=== PATIENT | female | born 1970 | race Caucasian/White ===

== ENCOUNTER → 2020-10-31 13:30 | Outpatient (BNVA) | payer MEDICARE, SELFPAY | PROVIDERS: PCP Internal Medicine; Visit Provider Student in an Organized Health Care Education/Training Program | DX: Z13.89 Encounter for screening for other disorder (principal) | CPT/HCPCS: Q3014 ==

== ENCOUNTER 2020-12-08 16:40 | Outpatient (REF) | payer MEDICARE, SELFPAY ==
[2020-12-08 18:03] LABS: MANUAL DIFF FLAG NO
[2020-12-08 18:04] LABS: Basophils Percent Auto 0.3 % (0-2); Eosinophils Absolute Auto 0.3 X10*3/uL (0.0-0.4); Eosinophils Percent Auto 3.9 % (0-4); Hematocrit 40.5 % (37-47); Hemoglobin 13.1 g/dl (12.0-16.0); Imm Gran Abs Auto 0.02 X10*3/uL (0.00-0.03); Imm Gran Pct Auto 0.3 % (0.0-0.4); Lymphocytes Absolute Auto 1.9 X10*3/uL (1.2-4.9); Mean Corpuscular HGB Conc 32.3 g/dl (31.0-35.0); Mean Corpuscular Hemoglobin 28.5 pg (27.0-33.0); Mean Corpuscular Volume 88.2 fL (80-98); Monocytes Absolute Auto 0.7 X10*3/uL (0.1-1.2); Monocytes Percent Auto 8.7 % (2-11); Neutrophils Absolute Auto 4.7 X10*3/uL (2.0-8.3); Neutrophils Percent Auto 61.8 % (45-73); Platelet Count 318 X10*3/uL (160-400); Red Blood Count 4.59 X10*6/uL (4.20-5.50); Red Cell Distribution Width 13.7 % (11.0-16.0); White Blood Count 7.6 X10*3/uL (4.8-10.8)
[2020-12-08 18:35] LABS: Alanine Aminotransferase 29 U/L (0-31); Albumin Level 4.2 g/dL (3.5-5.0); Alkaline Phosphatase 83 U/L (39-117); Anion Gap 12 (12-20); Aspartate Amino Transferase 20 U/L (5-31); Bilirubin Total 0.8 mg/dL (0.0-1.0); Blood Urea Nitrogen 16 mg/dL (9-16); C Reactive Protein 0.44 mg/dL (< or = 0.50); Calcium 8.8 mg/dL (8.4-10.2); Carbon Dioxide 33 mmol/L (22-29); Chloride 102 mmol/L (96-108); Estimated Glomerular Filt Rate > 60; Glucose Random 88 mg/dL (60-115); Potassium 3.9 mmol/L (3.3-5.1); Sodium 143 mmol/L (135-145); Total Protein 7.2 g/dL (6.5-8.0)
[2020-12-08 19:04] LABS: Erythrocyte Sedimentation Rate 21 MM/HR (0-20)
== END 2020-12-08 16:41 | disposition home or self-care (01) ==
LOC: HO.LAB 16:40
PROVIDERS: Visit Provider Student in an Organized Health Care Education/Training Program
DX: M05.9 Rheumatoid arthritis with rheumatoid factor, unspecified (principal)
CPT/HCPCS: 36415; 80053; 85025; 85652; 86140

== ENCOUNTER → 2021-01-16 16:05 | Outpatient (BNVA) | payer MEDICARE, SELFPAY | PROVIDERS: PCP Internal Medicine; Visit Provider Student in an Organized Health Care Education/Training Program | DX: M05.9 Rheumatoid arthritis with rheumatoid factor, unspecified (principal); Z79.899 Other long term (current) drug therapy | CPT/HCPCS: 99212 ==

== ENCOUNTER 2021-04-18 16:12 | Outpatient (REF) | payer MEDICARE, SELFPAY ==
--- NOTE | ~2021-04-18 | XR_ITS ---
EXAMINATION: XR KNEE, LEFT CLINICAL INFORMATION: Rheumatoid arthritis with rheumatoid factor. Left knee pain. COMPARISON: None TECHNIQUE: 3 views of the left knee. FINDINGS: There is loss of medial and patellofemoral compartment joint space with periarticular spurring. No visible acute fracture, dislocation or subluxation seen. There is a moderate size enthesophyte along the anterosuperior patella and anterior tibial tubercle. No joint effusion seen. No soft tissue swelling. XR/XR knee LT 3V IMPRESSION: Mild degenerative changes medial and patellofemoral compartment. With moderate enthesophytes along the superior patella and anterior tibial tubercle. No acute fracture or dislocation seen.
[2021-04-18 17:10] LABS: MANUAL DIFF FLAG NO
[2021-04-18 17:25] LABS: Basophils Percent Auto 0.2 % (0-2); Eosinophils Absolute Auto 0.2 X10*3/uL (0.0-0.4); Eosinophils Percent Auto 1.9 % (0-4); Hematocrit 39.4 % (37-47); Hemoglobin 12.8 g/dl (12.0-16.0); Imm Gran Abs Auto 0.02 X10*3/uL (0.00-0.03); Imm Gran Pct Auto 0.2 % (0.0-0.4); Lymphocytes Absolute Auto 1.7 X10*3/uL (1.2-4.9); Lymphocytes Percent Auto 19.5 % (20-40); Mean Corpuscular HGB Conc 32.5 g/dl (31.0-35.0); Mean Corpuscular Hemoglobin 27.9 pg (27.0-33.0); Mean Corpuscular Volume 85.8 fL (80-98); Mean Platelet Volume 10.9 fL (9.4-12.3); Monocytes Absolute Auto 0.5 X10*3/uL (0.1-1.2); Monocytes Percent Auto 6.3 % (2-11); Neutrophils Absolute Auto 6.2 X10*3/uL (2.0-8.3); Neutrophils Percent Auto 71.9 % (45-73); Platelet Count 270 X10*3/uL (160-400); Red Blood Count 4.59 X10*6/uL (4.20-5.50); Red Cell Distribution Width 14.3 % (11.0-16.0); White Blood Count 8.6 X10*3/uL (4.8-10.8)
[2021-04-18 18:16] LABS: Alanine Aminotransferase 31 U/L (0-31); Albumin Level 4.4 g/dL (3.5-5.0); Alkaline Phosphatase 72 U/L (39-117); Aspartate Amino Transferase 22 U/L (5-31); Bilirubin Total 0.5 mg/dL (0.0-1.0); Blood Urea Nitrogen 14 mg/dL (9-16); C Reactive Protein 0.62 mg/dL (< or = 0.50); Calcium 9.7 mg/dL (8.4-10.2); Estimated Glomerular Filt Rate > 60; Glucose Random 110 mg/dL (60-115); Total Protein 7.4 g/dL (6.5-8.0)
[2021-04-18 18:21] LABS: Anion Gap 10 (12-20); Carbon Dioxide 31 mmol/L (22-29); Chloride 104 mmol/L (96-108); Potassium 4.4 mmol/L (3.3-5.1); Sodium 141 mmol/L (135-145)
[2021-04-18 18:36] LABS: Erythrocyte Sedimentation Rate 25 MM/HR (0-20)
== END 2021-04-18 16:13 | disposition home or self-care (01) ==
LOC: HO.XRAY 16:12
PROVIDERS: PCP Internal Medicine; Visit Provider Student in an Organized Health Care Education/Training Program
DX: M05.9 Rheumatoid arthritis with rheumatoid factor, unspecified (principal); Z79.899 Other long term (current) drug therapy
CPT/HCPCS: 36415; 73562; 80053; 85025; 85652; 86140; 99212

== ENCOUNTER 2021-08-01 14:17 | Outpatient (REF) | payer MEDICARE, SELFPAY ==
--- NOTE | ~2021-08-01 | XR_ITS ---
EXAMINATION: XR FOOT, LEFT CLINICAL INFORMATION: Pain left foot COMPARISON: None TECHNIQUE: AP, lateral, and oblique views of the left foot. FINDINGS: There is a large calcaneal heel and retrocalcaneal enthesophytes. Also mild dorsal intertarsal spurring is visualized. No acute fracture or dislocation seen. The ankle mortise and subtalar joints appear normal. The soft tissues are normal. XR/XR foot LT 2V IMPRESSION: Large calcaneal heel and retrocalcaneal enthesophytes.
[2021-08-01 15:51] LABS: MANUAL DIFF FLAG NO
[2021-08-01 15:56] LABS: Basophils Percent Auto 0.3 % (0-2); Eosinophils Absolute Auto 0.2 X10*3/uL (0.0-0.4); Eosinophils Percent Auto 2.6 % (0-4); Hematocrit 40.1 % (37-47); Hemoglobin 12.8 g/dl (12.0-16.0); Imm Gran Abs Auto 0.02 X10*3/uL (0.00-0.03); Imm Gran Pct Auto 0.3 % (0.0-0.4); Lymphocytes Absolute Auto 1.5 X10*3/uL (1.2-4.9); Lymphocytes Percent Auto 19.7 % (20-40); Mean Corpuscular HGB Conc 31.9 g/dl (31.0-35.0); Mean Corpuscular Hemoglobin 27.8 pg (27.0-33.0); Mean Platelet Volume 9.9 fL (9.4-12.3); Monocytes Absolute Auto 0.7 X10*3/uL (0.1-1.2); Monocytes Percent Auto 9.3 % (2-11); Neutrophils Percent Auto 67.8 % (45-73); Platelet Count 305 X10*3/uL (160-400); Red Blood Count 4.61 X10*6/uL (4.20-5.50); Red Cell Distribution Width 14.3 % (11.0-16.0); White Blood Count 7.4 X10*3/uL (4.8-10.8)
[2021-08-01 16:17] LABS: Alanine Aminotransferase 33 U/L (0-31); Albumin Level 4.2 g/dL (3.5-5.0); Alkaline Phosphatase 74 U/L (39-117); Anion Gap 11 (12-20); Aspartate Amino Transferase 21 U/L (5-31); Bilirubin Total 0.6 mg/dL (0.0-1.0); Blood Urea Nitrogen 10 mg/dL (9-16); C Reactive Protein 0.72 mg/dL (< or = 0.50); Calcium 9.7 mg/dL (8.4-10.2); Carbon Dioxide 31 mmol/L (22-29); Chloride 102 mmol/L (96-108); Estimated Glomerular Filt Rate > 60; Glucose Random 101 mg/dL (60-115); Potassium 3.6 mmol/L (3.3-5.1); Sodium 140 mmol/L (135-145); Total Protein 7.2 g/dL (6.5-8.0)
[2021-08-01 18:09] LABS: Erythrocyte Sedimentation Rate 21 MM/HR (0-20)
== END 2021-08-01 14:18 | disposition home or self-care (01) ==
LOC: HO.LAB 14:17
PROVIDERS: PCP Internal Medicine; Visit Provider Nurse Practitioner Family
DX: M05.9 Rheumatoid arthritis with rheumatoid factor, unspecified (principal); M79.672 Pain in left foot; Z79.899 Other long term (current) drug therapy
CPT/HCPCS: 36415; 73620; 80053; 85025; 85652; 86140; 99212

== ENCOUNTER 2021-10-12 11:48 | Outpatient (REF) | payer MEDICARE, OTHER, SELFPAY ==
[2021-10-12 12:04] LABS: MANUAL DIFF FLAG NO
[2021-10-12 12:49] LABS: Basophils Percent Auto 0.3 % (0-2); Eosinophils Absolute Auto 0.2 X10*3/uL (0.0-0.4); Eosinophils Percent Auto 3.1 % (0-4); Hematocrit 39.6 % (37.0-47.0); Hemoglobin 12.7 g/dl (12.0-16.0); Imm Gran Abs Auto 0.04 X10*3/uL (0.00-0.03); Imm Gran Pct Auto 0.5 % (0.0-0.4); Lymphocytes Absolute Auto 1.8 X10*3/uL (1.2-4.9); Mean Corpuscular HGB Conc 32.1 g/dl (31.0-35.0); Mean Corpuscular Hemoglobin 27.7 pg (27.0-33.0); Mean Corpuscular Volume 86.3 fL (80.0-98.0); Mean Platelet Volume 9.9 fL (9.4-12.3); Monocytes Absolute Auto 0.5 X10*3/uL (0.1-1.2); Neutrophils Percent Auto 65.1 % (45-73); Platelet Count 318 X10*3/uL (160-400); Red Blood Count 4.59 X10*6/uL (4.20-5.50); Red Cell Distribution Width 13.5 % (11.0-16.0); White Blood Count 7.6 X10*3/uL (4.8-10.8)
[2021-10-12 13:31] LABS: Alanine Aminotransferase 32 U/L (0-31); Albumin Level 4.1 g/dL (3.5-5.0); Alkaline Phosphatase 69 U/L (39-117); Anion Gap 13 (12-20); Aspartate Amino Transferase 22 U/L (5-31); Bilirubin Total 0.8 mg/dL (0.0-1.0); Blood Urea Nitrogen 14 mg/dL (9-16); C Reactive Protein 0.71 mg/dL (< or = 0.50); Calcium 9.6 mg/dL (8.4-10.2); Carbon Dioxide 28 mmol/L (22-29); Chloride 105 mmol/L (96-108); Estimated Glomerular Filt Rate > 60; Glucose Random 98 mg/dL (60-115); Potassium 4.4 mmol/L (3.3-5.1); Sodium 142 mmol/L (135-145); Total Protein 7.3 g/dL (6.5-8.0)
[2021-10-12 13:41] LABS: Erythrocyte Sedimentation Rate 25 MM/HR (0-20)
== END 2021-10-12 11:49 | disposition home or self-care (01) ==
LOC: HO.LAB 11:48
PROVIDERS: Visit Provider Nurse Practitioner Family
DX: M05.9 Rheumatoid arthritis with rheumatoid factor, unspecified (principal)
CPT/HCPCS: 36415; 80053; 85025; 85652; 86140

== ENCOUNTER → 2021-11-27 09:35 | Outpatient (BNVA) | payer MEDICARE, OTHER, SELFPAY | PROVIDERS: PCP Internal Medicine; Visit Provider Nurse Practitioner Family | DX: M05.9 Rheumatoid arthritis with rheumatoid factor, unspecified (principal); M79.672 Pain in left foot; Z79.899 Other long term (current) drug therapy | CPT/HCPCS: 99212 ==

== ENCOUNTER 2022-02-15 10:12 | Outpatient (REF) | payer MEDICARE, OTHER, SELFPAY ==
[2022-02-15 10:27] LABS: MANUAL DIFF FLAG NO
[2022-02-15 11:32] LABS: Basophils Percent Auto 0.4 % (0-2); Eosinophils Absolute Auto 0.2 X10*3/uL (0.0-0.4); Eosinophils Percent Auto 3.3 % (0-4); Hematocrit 40.5 % (37.0-47.0); Imm Gran Abs Auto 0.01 X10*3/uL (0.00-0.03); Imm Gran Pct Auto 0.2 % (0.0-0.4); Lymphocytes Absolute Auto 1.4 X10*3/uL (1.2-4.9); Lymphocytes Percent Auto 27.3 % (20-40); Mean Corpuscular HGB Conc 32.1 g/dl (31.0-35.0); Mean Corpuscular Hemoglobin 28.1 pg (27.0-33.0); Mean Corpuscular Volume 87.7 fL (80.0-98.0); Mean Platelet Volume 9.7 fL (9.4-12.3); Monocytes Absolute Auto 0.4 X10*3/uL (0.1-1.2); Monocytes Percent Auto 6.8 % (2-11); Neutrophils Absolute Auto 3.2 x10*3/uL (2.0-8.3); Platelet Count 325 X10*3/uL (160-400); Red Blood Count 4.62 X10*6/uL (4.20-5.50); Red Cell Distribution Width 14.4 % (11.0-16.0); White Blood Count 5.2 X10*3/uL (4.8-10.8)
[2022-02-15 12:08] LABS: Erythrocyte Sedimentation Rate 23 MM/HR (0-20)
[2022-02-15 12:26] LABS: Alanine Aminotransferase 42 U/L (0-31); Albumin Level 4.1 g/dL (3.5-5.0); Alkaline Phosphatase 84 U/L (39-117); Anion Gap 10 (12-20); Aspartate Amino Transferase 26 U/L (5-31); Bilirubin Total 0.7 mg/dL (0.0-1.0); Blood Urea Nitrogen 8 mg/dL (9-16); C Reactive Protein 0.71 mg/dL (< or = 0.50); Calcium 9.6 mg/dL (8.4-10.2); Carbon Dioxide 32 mmol/L (22-29); Chloride 103 mmol/L (96-108); Estimated Glomerular Filt Rate > 60; Glucose Random 84 mg/dL (60-115); Potassium 4.1 mmol/L (3.3-5.1); Sodium 141 mmol/L (135-145); Total Protein 7.1 g/dL (6.5-8.0)
== END 2022-02-15 10:13 | disposition home or self-care (01) ==
LOC: HO.LAB 10:12
PROVIDERS: Visit Provider Nurse Practitioner Family
DX: M05.9 Rheumatoid arthritis with rheumatoid factor, unspecified (principal); Z79.899 Other long term (current) drug therapy
CPT/HCPCS: 36415; 80053; 85025; 85652; 86140

== ENCOUNTER → 2022-02-22 08:54 | Outpatient (BNVA) | payer MEDICARE, OTHER, SELFPAY | PROVIDERS: PCP Internal Medicine; Visit Provider Nurse Practitioner Family | DX: M05.9 Rheumatoid arthritis with rheumatoid factor, unspecified (principal); M79.672 Pain in left foot; Z79.899 Other long term (current) drug therapy | CPT/HCPCS: 99212 ==

== ENCOUNTER 2022-07-22 14:01 | Outpatient (REF) | payer MEDICARE, OTHER, SELFPAY ==
[2022-07-22 14:16] LABS: MANUAL DIFF FLAG NO
[2022-07-22 14:38] LABS: Basophils Percent Auto 0.3 % (0-2); Eosinophils Absolute Auto 0.2 X10*3/uL (0.0-0.4); Eosinophils Percent Auto 2.6 % (0-4); Hematocrit 39.6 % (37.0-47.0); Imm Gran Abs Auto 0.02 X10*3/uL (0.00-0.03); Imm Gran Pct Auto 0.3 % (0.0-0.4); Lymphocytes Absolute Auto 1.5 X10*3/uL (1.2-4.9); Lymphocytes Percent Auto 20.5 % (20-40); Mean Corpuscular HGB Conc 32.8 g/dl (31.0-35.0); Mean Corpuscular Hemoglobin 27.8 pg (27.0-33.0); Mean Corpuscular Volume 84.6 fL (80.0-98.0); Mean Platelet Volume 9.8 fL (9.4-12.3); Monocytes Absolute Auto 0.6 X10*3/uL (0.1-1.2); Monocytes Percent Auto 7.9 % (2-11); Neutrophils Absolute Auto 4.9 x10*3/uL (2.0-8.3); Neutrophils Percent Auto 68.4 % (45-73); Platelet Count 309 X10*3/uL (160-400); Red Blood Count 4.68 X10*6/uL (4.20-5.50); Red Cell Distribution Width 13.6 % (11.0-16.0); White Blood Count 7.2 X10*3/uL (4.8-10.8)
[2022-07-22 15:02] LABS: Alanine Aminotransferase 27 U/L (0-31); Aspartate Amino Transferase 20 U/L (5-31); C Reactive Protein 1.03 mg/dL (< or = 0.50); Estimated Glomerular Filt Rate > 60
[2022-07-22 15:18] LABS: Erythrocyte Sedimentation Rate 25 MM/HR (0-20)
== END 2022-07-22 14:02 | disposition home or self-care (01) ==
LOC: HO.LAB 14:01
PROVIDERS: Visit Provider Nurse Practitioner Family
DX: M05.9 Rheumatoid arthritis with rheumatoid factor, unspecified (principal); Z79.899 Other long term (current) drug therapy
CPT/HCPCS: 36415; 82565; 84450; 84460; 85025; 85652; 86140

== ENCOUNTER 2022-08-22 13:05 | Outpatient (REF) | payer MEDICARE, SELFPAY ==
[2022-08-22 13:16] LABS: MANUAL DIFF FLAG NO
[2022-08-22 13:25] LABS: Basophils Percent Auto 0.1 % (0-2); Eosinophils Absolute Auto 0.2 X10*3/uL (0.0-0.4); Eosinophils Percent Auto 2.8 % (0-4); Hematocrit 41.7 % (37.0-47.0); Imm Gran Abs Auto 0.02 X10*3/uL (0.00-0.03); Imm Gran Pct Auto 0.3 % (0.0-0.4); Lymphocytes Absolute Auto 1.9 X10*3/uL (1.2-4.9); Lymphocytes Percent Auto 23.8 % (20-40); Mean Corpuscular HGB Conc 33.6 g/dl (31.0-35.0); Mean Corpuscular Hemoglobin 28.3 pg (27.0-33.0); Mean Corpuscular Volume 84.4 fL (80.0-98.0); Mean Platelet Volume 9.5 fL (9.4-12.3); Monocytes Absolute Auto 0.5 X10*3/uL (0.1-1.2); Monocytes Percent Auto 6.2 % (2-11); Neutrophils Absolute Auto 5.3 x10*3/uL (2.0-8.3); Neutrophils Percent Auto 66.8 % (45-73); Platelet Count 341 X10*3/uL (160-400); Red Blood Count 4.94 X10*6/uL (4.20-5.50); Red Cell Distribution Width 13.7 % (11.0-16.0); White Blood Count 7.9 X10*3/uL (4.8-10.8)
[2022-08-22 14:03] LABS: Alanine Aminotransferase 29 U/L (0-31); Aspartate Amino Transferase 21 U/L (5-31); C Reactive Protein 0.91 mg/dL (< or = 0.50); Estimated Glomerular Filt Rate > 60
[2022-08-22 14:09] LABS: Erythrocyte Sedimentation Rate 31 MM/HR (0-20)
== END 2022-08-22 13:06 | disposition home or self-care (01) ==
LOC: HO.LAB 13:05
PROVIDERS: Visit Provider Nurse Practitioner Family
DX: M05.9 Rheumatoid arthritis with rheumatoid factor, unspecified (principal); Z79.899 Other long term (current) drug therapy
CPT/HCPCS: 36415; 82565; 84450; 84460; 85025; 85652; 86140

== ENCOUNTER 2022-08-23 15:09 | Outpatient (REF) | payer MEDICARE, SELFPAY ==
--- NOTE | ~2022-08-23 | US_ITS ---
EXAMINATION: US VENOUS ULTRASOUND WITH DOPPLER LOWER EXTREMITY, RIGHT CLINICAL INFORMATION: Right leg swelling. COMPARISON: None TECHNIQUE: Ultrasound of the deep veins is performed from the hip to the calf with compression sonography and color and pulse Doppler assessment. Spectral analysis with color-flow imaging is performed. FINDINGS: The right common femoral, superficial femoral, profunda, popliteal and peroneal veins are patent. There is decreased compression and flow in the visualized right posterior tibial veins questionable for thrombus. Short-term follow-up exam in 5-7 days is recommended. There is no Morocho's cyst. US/US venous duplex LE RT IMPRESSION: Question DVT in the right posterior tibial veins. Short-term follow-up exam recommended. Findings were communicated by the geospatial technologist at the completion of the exam.
--- NOTE | ~2022-08-23 | XR_ITS ---
EXAMINATION: XR HAND, LEFT CLINICAL INFORMATION: Rheumatoid arthritis. COMPARISON: None. TECHNIQUE: PA, lateral, and oblique views of the left hand. FINDINGS: Bone alignment is normal. No acute fracture or dislocation is seen. There is proliferative arthritis at the IP joints, 1st PENITENTIARY joint and 1st MCP joint with joint space narrowing and osteophyte formation. There is arthritis at the radiocarpal joint with joint space narrowing and osteophyte formation. No erosions. Normal soft tissues. XR/XR hand LT min 3V IMPRESSION: Arthritis at the IP joints, 1st MCP and PENITENTIARY joints and radiocarpal joint.
--- NOTE | ~2022-08-23 | XR_ITS ---
EXAMINATION: XR HAND, RIGHT CLINICAL INFORMATION: Rheumatoid arthritis COMPARISON: None TECHNIQUE: PA, lateral, and oblique views of the right hand. FINDINGS: Bone alignment is normal. No fracture or dislocation. There is evidence of mild osteoarthritis with joint space narrowing and osteophyte formation at the IP joints and 1st PRISON joint. Joint spaces are otherwise normal. No erosions. Normal soft tissues. 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
== END 2022-08-23 15:10 | disposition home or self-care (01) ==
LOC: HO.US 15:09
PROVIDERS: Visit Provider Nurse Practitioner Family
DX: Z13.89 Encounter for screening for other disorder (principal)
CPT/HCPCS: 73130; 93971; 99212

== ENCOUNTER 2022-08-23 18:41 | Emergency (ER) | payer MEDICARE, SELFPAY ==
[2022-08-23 19:07] VITALS: BP 150/85; PULSE 82; RESP 20; TEMP 36.8; O2SAT 96; BMI 34.0
--- NOTE | 2022-08-23 19:12 | PC.NURSE ---
Pt. with known blood clot in her right leg confirmed today by her Race Relations Professor. Pt. reports intermittent SOB. bellows tester aware
--- NOTE | 2022-08-23 19:57 | ED.GENADULT ---
HPI - General Adult General Chief complaint: General Medical Stated complaint: blood clot found in L leg Time Seen by Provider: 08/23/22 19:30 Source: patient Mode of arrival: ambulatory Limitations: no limitations History of Present Illness HPI narrative: 51-year-old female past medical history significant for RA, hearing impairment, on MTX ( 10 tabs weekly) presents to the emergency department with concerns that she may have a blood clot. Patient tells me that she was seen by her home health clinical supervisor today who noted that her right leg was slightly larger than her left leg, they proceeded to do an ultrasound and they told her that she may have a blood clot to her right lower extremity. Patient tells me that she started experiencing intermittent tingling to the right lower extremity and some soreness. She tells me that this all started today. Patient is not a smoker, not on blood thinners, no history of DVT or PE, no history of hypercoagulable disorders. Patient denies chest pain, shortness of breath, nausea, vomiting, fevers, chills, weakness, dizziness, headache. Patient tells me that she had an outpatient ultrasound done results pending. To note patient speaks ASL however refusing cushion sewer would like family to interpret. Related Data Home Medications Medication Instructions Recorded Confirmed albuterol sulfate 90 mcg/actuation 2 puff inhalation Q6H PRN 10/31/20 aerosol inhaler Previous Rx's Medication Instructions Recorded folic acid 1 mg tablet 1 mg PO DAILY #90 tabs 06/11/22 naproxen 500 mg tablet 500 mg PO BID PRN pain #60 tabs 08/06/22 methotrexate sodium 2.5 mg tablet 25 mg PO QWEEK #40 tabs 08/20/22 apixaban 5 mg (74 tabs) tablets in 5 mg PO BID #74 ea 08/23/22 a dose pack (Eliquis DVT-PE Treat 30D Start) cyclobenzaprine 10 mg tablet 10 mg PO BEDTIME #30 tabs 08/23/22 Allergies Allergy/AdvReac Type Severity Reaction Status Date / Time No Known Allergies Allergy Verified 08/23/22 19:14 Review of Systems Review of Systems: Constitutional : No Weight loss, No Fever, No Chills, No Fatigue, No Malaise ENT/Mouth : No sore throat, No Rhinorrhea Eyes: No Eye Pain, No Swelling, No Redness Cardiovascular : No Chest Pain, No SOB, No Dyspnea on Exertion, No Orthopnea, + Edema, No Palpitations Respiratory : No Cough, No Sputum, No Wheezing Gastrointestinal : No Nausea, No Vomiting, No Diarrhea, No Constipation, No abdominal Pain, No Hematochezia, No Melena Genitourinary : No Dysuria, No Urinary Frequency, No Hematuria, Musculoskeletal : No joint pain, No Myalgias, No Joint Swelling, Skin : No Skin Lesions, No rash Neuro : No Weakness, No Numbness, No Dizziness, No Headache Psych : No Anxiety/Panic, No Depression All other systems reviewed and are negative Yes all other systems are reviewed and are negative [facility] Past Medical History Attestation statement: The following information was validated with the patient. Source: old records reviewed and nursing notes reviewed Medical History Seropositive rheumatoid arthritis Social History Social History Alcohol intake: never Patient Tobacco Use Status: Never used Tobacco e-Cigarette/Vaping Use: Never Used Advance Directives: No Advance Directives Information Provided: No Physical Exam ED Vital Signs: Vital Signs - 24 hr 08/23/22 19:07 Temperature 98.2 F Pulse Rate 82 Respiratory Rate 20 Blood Pressure 150/85 H Pulse Oximetry 96 Oxygen Delivery Method Room Air BMI result Body Mass Index 34.0 vss Appearance: Alert.? Oriented X3.? No acute distress.? Head: Normocephalic, atraumatic, no step-offs or deformities Eyes: Pupils equal, round and reactive to light.? CVS: Normal heart rate and rhythm.? Pulses normal.? Respiratory: No respiratory distress.? Breath sounds normal.? Abdomen: Soft and nontender.? Skin: Skin warm and dry.? Normal skin color.? Normal skin turgor.? Extremities: 1+ pitting edema from knee down to b/l lower extremities? No calf ttp, negative giana b/l. 5/5 strength to bilateral upper and lower extremities Neuro: Oriented X 3.? No motor deficit.? No sensory deficit. CN 2-12 intact Course Reevaluation(s) Reevaluation #1: CBC within normal limits. Chemistry with no acute electrolyte abnormalities requiring intervention. Coags within normal limits. COVID negative. I did discuss this case with my attendings and who both recommend starting patient on Eliquis for 7 days, they recommend that she has a repeat ultrasound of right lower extremity in 5-7 days. Advised to follow-up with PCP and home health clinical supervisor. I educated patient and family members on risk versus benefits of starting Eliquis, they verbalized understanding. At this time patient will be started on Eliquis advised to return with new or worsening symptoms. At this time I feel comfortable with discharge home Time: 22:21 Medical Decision Making MDM Narrative Medical decision making narrative: [id number] 51 year old female presents to the emergency department from her home health clinical supervisor's office was concerned she may have a DVT to the right lower extremity. They did an outpatient ultrasound today. She is unsure about results. Reports intermittent tingling to right lower extremity with some soreness. Physical examination with 1+ pitting edema to bilateral lower extremities from the knee down. 2+ dorsalis pedis, anterior tibialis and posterior tibialis pulses equal bilateral. Full range of motion bilaterally to lower extremities. Capillary refill intact. Negative Giana bilaterally. Upon chart review it appears as though patient had an ultrasound done today of the right lower extremity impression shows question DVT in the right posterior tibial veins. Short-term follow-up exam was recommended. Plan at this time is to obtain basic labs. Medical Records Medical records reviewed: Yes I reviewed the patient's medical records. Lab Data Lab results reviewed: Yes I reviewed the patient's lab results. Result diagrams: 08/23/22 22:10 08/23/22 21:00 Labs: Lab Results 08/23/22 08/23/22 08/23/22 Range/Units 21:00 21:00 21:03 WBC (4.8-10.8) X10*3/uL RBC (4.20-5.50) X10*6/uL Hgb (12.0-16.0) g/dl Hct (37.0-47.0) % MCV (80.0-98.0) fL MCH (27.0-33.0) pg MCHC (31.0-35.0) g/dl RDW (11.0-16.0) % Plt Count (160-400) X10*3/uL MPV (9.4-12.3) fL Immature Gran % (Auto) (0.0-0.4) % Neut % (Auto) (45-73) % Lymph % (Auto) (20-40) % Ness % (Auto) (2-11) % Eos % (Auto) (0-4) % Baso % (Auto) (0-2) % Lymph # (Auto) (1.2-4.9) X10*3/uL Ness # (Auto) (0.1-1.2) X10*3/uL Eos # (Auto) (0.0-0.4) X10*3/uL Baso # (Auto) (0.0-0.2) X10*3/uL Abs Immat Gran (auto) (0.00-0.03) X10*3/uL Absolute Neuts (auto) (2.0-8.3) x10*3/uL Absolute Nucleated RBC (0.0-0.012) X10*3/uL Nucleated RBC % (auto) (0.0-0.2) /100WBC PT 11.8 (10.0-13.1) SEC INR 1.0 (0.9-1.1) Sodium 142 (135-145) mmol/L Potassium 3.9 (3.3-5.1) mmol/L Chloride 101 (96-108) mmol/L Carbon Dioxide 31 H (22-29) mmol/L Anion Gap 14 (12-20) BUN 11 (9-16) mg/dL Creatinine 0.94 (0.5-1.4) mg/dL Estim Creat Clear Calc 75.1 Estimated GFR > 60 Random Glucose 115 (60-115) mg/dL Calcium 9.6 (8.4-10.2) mg/dL Magnesium 2.1 (1.6-2.6) mg/dL Total Bilirubin 0.9 (0.0-1.0) mg/dL AST 20 (5-31) U/L ALT 26 (0-31) U/L Alkaline Phosphatase 81 (39-117) U/L Total Protein 7.5 (6.5-8.0) g/dL Albumin 4.5 (3.5-5.0) g/dL COVID-19 ([facility]) Negative (Negative) COVID-19 Clin Com See Note 08/23/22 Range/Units 22:10 WBC 10.2 (4.8-10.8) X10*3/uL RBC 4.90 (4.20-5.50) X10*6/uL Hgb 13.7 (12.0-16.0) g/dl Hct 41.0 (37.0-47.0) % MCV 83.7 (80.0-98.0) fL MCH 28.0 (27.0-33.0) pg MCHC 33.4 (31.0-35.0) g/dl RDW 13.7 (11.0-16.0) % Plt Count 344 (160-400) X10*3/uL MPV 9.6 (9.4-12.3) fL Immature Gran % (Auto) 0.1 (0.0-0.4) % Neut % (Auto) 66.9 (45-73) % Lymph % (Auto) 23.0 (20-40) % Ness % (Auto) 7.7 (2-11) % Eos % (Auto) 2.0 (0-4) % Baso % (Auto) 0.3 (0-2) % Lymph # (Auto) 2.3 (1.2-4.9) X10*3/uL Ness # (Auto) 0.8 (0.1-1.2) X10*3/uL Eos # (Auto) 0.2 (0.0-0.4) X10*3/uL Baso # (Auto) 0.0 (0.0-0.2) X10*3/uL Abs Immat Gran (auto) 0.01 (0.00-0.03) X10*3/uL Absolute Neuts (auto) 6.8 (2.0-8.3) x10*3/uL Absolute Nucleated RBC 0.000 (0.0-0.012) X10*3/uL Nucleated RBC % (auto) 0.0 (0.0-0.2) /100WBC PT (10.0-13.1) SEC INR (0.9-1.1) Sodium (135-145) mmol/L Potassium (3.3-5.1) mmol/L Chloride (96-108) mmol/L Carbon Dioxide (22-29) mmol/L Anion Gap (12-20) BUN (9-16) mg/dL Creatinine (0.5-1.4) mg/dL Estim Creat Clear Calc Estimated GFR Random Glucose (60-115) mg/dL Calcium (8.4-10.2) mg/dL Magnesium (1.6-2.6) mg/dL Total Bilirubin (0.0-1.0) mg/dL AST (5-31) U/L ALT (0-31) U/L Alkaline Phosphatase (39-117) U/L Total Protein (6.5-8.0) g/dL Albumin (3.5-5.0) g/dL COVID-19 ([facility]) (Negative) COVID-19 Clin Com Critical Care Time Critical Care Time Critical Care Time: No Discharge Plan Discharge Clinical Impression: DVT (deep venous thrombosis) Patient Disposition: Home, Self-Care Instructions: Deep Vein Thrombosis (ED), Blood Thinners (ED) Additional Instructions: Take your medications as prescribed. If you were prescribed antibiotics today, it is important that you take your medication to their entirety, do not skip any doses, do not finish them early. Follow-up with your primary care provider this week. Return to the emergency department with new or worsening symptoms. Such as fevers, chills, chest pain, shortness of breath, nausea, vomiting, dizziness, headache, vision changes, lethargy In case of emergency call 911 Do not take any NSAIDs such as naproxen, do not take aspirin, if you sustained a fall or trauma you must be evaluated by medical professional as blood thinners put you at a high risk for bleeding. If you notice bleeding from anywhere such as stool, vomit, or excessive bleeding from anywhere your to be re-evaluated Please start taking Eliquis, you should have a follow-up exam in 5-7 days. Please follow-up with your PCP and your home health clinical supervisor as soon as possible but within one week. US/US venous duplex LE RT IMPRESSION: Question DVT in the right posterior tibial veins. Short-term follow-up exam recommended. ? Findings were communicated by the diagnostic technologist at the completion of the exam. Prescriptions: New Eliquis DVT-PE Treat 30D Start 5 mg (74 tabs) tablets,dose pack 5 mg PO BID Qty: 74 0RF No Action folic acid 1 mg tablet 1 mg PO DAILY Qty: 90 1RF naproxen 500 mg tablet 500 mg PO BID PRN (Reason: pain) Qty: 60 1RF methotrexate sodium 2.5 mg tablet 25 mg PO QWEEK Qty: 40 0RF albuterol sulfate 90 mcg/actuation HFA aerosol inhaler 2 puff inhalation Q6H PRN cyclobenzaprine 10 mg tablet 10 mg PO BEDTIME Qty: 30 0RF Referrals: Physician,Unknown J [Primary Care Provider] - 2 days Janice Negron NP [Nurse Practitioner] - 3 days Stand Alone Forms: Work/School Release
[2022-08-23 21:12] LABS: Prothrombin Time 11.8 SEC (10.0-13.1)
[2022-08-23 21:29] LABS: COVID-19 Test Negative (Negative); IDNOW Serial# 55D5AD1C
[2022-08-23 21:37] LABS: Alanine Aminotransferase 26 U/L (0-31); Albumin Level 4.5 g/dL (3.5-5.0); Alkaline Phosphatase 81 U/L (39-117); Anion Gap 14 (12-20); Aspartate Amino Transferase 20 U/L (5-31); Bilirubin Total 0.9 mg/dL (0.0-1.0); Blood Urea Nitrogen 11 mg/dL (9-16); Calcium 9.6 mg/dL (8.4-10.2); Carbon Dioxide 31 mmol/L (22-29); Chloride 101 mmol/L (96-108); Creatinine Clr Calc Pharmacy 75.1; Estimated Glomerular Filt Rate > 60; Glucose Random 115 mg/dL (60-115); Magnesium 2.1 mg/dL (1.6-2.6); Potassium 3.9 mmol/L (3.3-5.1); Sodium 142 mmol/L (135-145); Total Protein 7.5 g/dL (6.5-8.0)
[2022-08-23] MEDS: Apixaban 5 MG TABLET 10 MG PO (21:53)
[2022-08-23 22:15] LABS: MANUAL DIFF FLAG NO
[2022-08-23 22:16] LABS: Basophils Percent Auto 0.3 % (0-2); Eosinophils Absolute Auto 0.2 X10*3/uL (0.0-0.4); Hemoglobin 13.7 g/dl (12.0-16.0); Imm Gran Abs Auto 0.01 X10*3/uL (0.00-0.03); Imm Gran Pct Auto 0.1 % (0.0-0.4); Lymphocytes Absolute Auto 2.3 X10*3/uL (1.2-4.9); Mean Corpuscular HGB Conc 33.4 g/dl (31.0-35.0); Mean Corpuscular Volume 83.7 fL (80.0-98.0); Mean Platelet Volume 9.6 fL (9.4-12.3); Monocytes Absolute Auto 0.8 X10*3/uL (0.1-1.2); Monocytes Percent Auto 7.7 % (2-11); Neutrophils Absolute Auto 6.8 x10*3/uL (2.0-8.3); Neutrophils Percent Auto 66.9 % (45-73); Platelet Count 344 X10*3/uL (160-400); Red Cell Distribution Width 13.7 % (11.0-16.0); White Blood Count 10.2 X10*3/uL (4.8-10.8)
[2022-08-23 22:25] LABS: D Dimer High Sensitivity < 150 NG/ML
== END 2022-08-23 22:51 | disposition home or self-care (01) ==
PROVIDERS: Physician Assistant; Emergency Provider Emergency Medicine Emergency Medical Services
DX: I82.441 Acute embolism and thrombosis of right tibial vein (principal); R60.0 Localized edema; M79.642 Pain in left hand; M79.641 Pain in right hand; Z20.822 Contact with and (suspected) exposure to COVID-19; Z79.899 Other long term (current) drug therapy
CPT/HCPCS: 36415; 73130; 80053; 83735; 85025; 85379; 85610; 87635; 93971; 99212; 99282; 99284

== ENCOUNTER 2022-08-28 11:14 | Outpatient (REF) | payer MEDICARE, SELFPAY ==
--- NOTE | ~2022-08-28 | US_ITS ---
EXAMINATION: US VENOUS ULTRASOUND WITH DOPPLER LOWER EXTREMITY, RIGHT CLINICAL INFORMATION: Right lower extremity edema/swelling COMPARISON: None TECHNIQUE: Ultrasound of the deep veins is performed from the hip to the calf with compression sonography and color and pulse Doppler assessment. Spectral analysis with color-flow imaging is performed. FINDINGS: There is normal venous compression and respiratory variation and augmented flow. The visualized common femoral vein, superficial femoral vein, profunda femoral vein, popliteal vein, and the visualized calf veins shows no evidence of deep venous thrombosis. The peroneal vein is not visualized. There is no significant popliteal fossa cyst. If the patient's symptoms persist, followup ultrasound in 5 days 7 days might be of value to exclude proximal propagation from a non-visualized calf vein. US/US venous duplex LE RT IMPRESSION: No DVT demonstrated in the right lower extremity.
== END 2022-08-28 11:15 | disposition home or self-care (01) ==
LOC: HO.US 11:14
PROVIDERS: Visit Provider Nurse Practitioner Family
DX: R60.0 Localized edema (principal)
CPT/HCPCS: 93971

== ENCOUNTER 2022-11-21 12:13 | Outpatient (REF) | payer MEDICARE, SELFPAY ==
[2022-11-21 14:00] LABS: MANUAL DIFF FLAG NO
[2022-11-21 14:15] LABS: Basophils Percent Auto 0.4 % (0-2); Eosinophils Absolute Auto 0.1 X10*3/uL (0.0-0.4); Eosinophils Percent Auto 2.3 % (0-4); Hematocrit 40.4 % (37.0-47.0); Hemoglobin 13.2 g/dl (12.0-16.0); Imm Gran Abs Auto 0.01 X10*3/uL (0.00-0.03); Imm Gran Pct Auto 0.2 % (0.0-0.4); Lymphocytes Absolute Auto 1.6 X10*3/uL (1.2-4.9); Lymphocytes Percent Auto 28.3 % (20-40); Mean Corpuscular HGB Conc 32.7 g/dl (31.0-35.0); Mean Corpuscular Hemoglobin 28.4 pg (27.0-33.0); Mean Corpuscular Volume 87.1 fL (80.0-98.0); Monocytes Absolute Auto 0.5 X10*3/uL (0.1-1.2); Monocytes Percent Auto 9.1 % (2-11); Neutrophils Absolute Auto 3.4 x10*3/uL (2.0-8.3); Neutrophils Percent Auto 59.7 % (45-73); Platelet Count 331 X10*3/uL (160-400); Red Blood Count 4.64 X10*6/uL (4.20-5.50); Red Cell Distribution Width 14.2 % (11.0-16.0); White Blood Count 5.6 X10*3/uL (4.8-10.8)
[2022-11-21 14:27] LABS: Alanine Aminotransferase 46 U/L (0-31); Aspartate Amino Transferase 30 U/L (5-31); Estimated Glomerular Filt Rate > 60
[2022-11-21 15:00] LABS: Erythrocyte Sedimentation Rate 27 MM/HR (0-20)
== END 2022-11-21 12:14 | disposition home or self-care (01) ==
LOC: HO.WFDLDS 12:13
PROVIDERS: Visit Provider Nurse Practitioner Family
DX: M05.9 Rheumatoid arthritis with rheumatoid factor, unspecified (principal); Z79.899 Other long term (current) drug therapy
CPT/HCPCS: 36415; 82565; 84450; 84460; 85025; 85652; 86140

== ENCOUNTER 2022-11-22 10:15 | Outpatient (REF) | payer MEDICARE, SELFPAY ==
--- NOTE | ~2022-11-22 | XR_ITS ---
EXAMINATION: XR LUMBOSACRAL SPINE CLINICAL INFORMATION: Lower back pain. COMPARISON: Radiographs dated 04/28/2020. TECHNIQUE: AP and lateral views of the lumbar spine and lateral view of the lumbosacral junction. FINDINGS: There is bony demineralization. Vertebral body heights and alignment are normal. The disc spaces are well-maintained. No acute fracture or spondylolisthesis is seen. There is multi-level lower thoracic and lumbar spondylosis. There is facet arthropathy, most pronounced at L5-S1. There are aortic atherosclerotic calcifications. XR/XR lumbar spine 2-3V IMPRESSION: 1. No acute fracture or spondylolisthesis is seen. 2. The lumbar disc spaces are well-maintained. 3. There is multi-level lower thoracic and lumbar spondylosis. 4. There is facet arthropathy, most pronounced at L5-S1.
--- NOTE | ~2022-11-22 | XR_ITS ---
EXAMINATION: XR SHOULDER, LEFT CLINICAL INFORMATION: Pain. COMPARISON: None TECHNIQUE: AP external rotation, Grashey, scapular Y, and axillary views of the left shoulder. FINDINGS: Bony alignment and mineralization are normal. The glenohumeral joint is intact and shows moderate osteoarthritic change. The acromioclavicular and coracoclavicular intervals are normal. There is a small distal acromial osteophyte. There is calcific tendinitis of the left rotator cuff insertion. No fracture or dislocation is seen. This no foreign body. No left pneumothorax is seen. XR/XR shoulder LT min 2V IMPRESSION: 1. There is moderate osteoarthritic change of the left glenohumeral joint. 2. There is calcific tendinitis of the left rotator cuff insertion.
== END 2022-11-22 10:16 | disposition home or self-care (01) ==
LOC: HO.XRAY 10:15
PROVIDERS: PCP Internal Medicine; Visit Provider Nurse Practitioner Family
DX: M05.9 Rheumatoid arthritis with rheumatoid factor, unspecified (principal); M25.512 Pain in left shoulder; M54.50 Low back pain, unspecified; M79.89 Other specified soft tissue disorders; Z79.899 Other long term (current) drug therapy
CPT/HCPCS: 72100; 73030; 99212

== ENCOUNTER 2022-12-13 09:00 | Outpatient (REF) | payer MEDICARE, SELFPAY ==
[2022-12-13 11:40] LABS: Alanine Aminotransferase 58 U/L (0-31); Aspartate Amino Transferase 27 U/L (5-31)
== END 2022-12-13 09:01 | disposition home or self-care (01) ==
LOC: HO.WFDLDS 09:00
PROVIDERS: Visit Provider Nurse Practitioner Family
DX: Z79.899 Other long term (current) drug therapy (principal)
CPT/HCPCS: 36415; 84450; 84460

== ENCOUNTER 2022-12-26 10:04 | Outpatient (REF) | payer MEDICARE, SELFPAY ==
[2022-12-26 12:33] LABS: Alanine Aminotransferase 24 U/L (0-31); Aspartate Amino Transferase 16 U/L (5-31)
== END 2022-12-26 10:05 | disposition home or self-care (01) ==
LOC: HO.WFDLDS 10:04
PROVIDERS: Visit Provider Nurse Practitioner Family
DX: Z79.899 Other long term (current) drug therapy (principal)
CPT/HCPCS: 36415; 84450; 84460

== ENCOUNTER 2023-01-17 12:26 | Outpatient (REF) | payer MEDICARE, SELFPAY ==
[2023-01-17 15:18] LABS: Alanine Aminotransferase 47 U/L (0-31); Aspartate Amino Transferase 30 U/L (5-31)
== END 2023-01-17 12:27 | disposition home or self-care (01) ==
LOC: HO.WFDLDS 12:26
PROVIDERS: Visit Provider Nurse Practitioner Family
DX: Z79.899 Other long term (current) drug therapy (principal)
CPT/HCPCS: 36415; 84450; 84460

== ENCOUNTER → 2023-02-11 13:20 | Outpatient (BNVA) | payer MEDICARE, SELFPAY | PROVIDERS: PCP Internal Medicine; Visit Provider Nurse Practitioner Family | DX: M05.9 Rheumatoid arthritis with rheumatoid factor, unspecified (principal); M47.816 Spondylosis without myelopathy or radiculopathy, lumbar region; M19.012 Primary osteoarthritis, left shoulder; Z79.631 Long term (current) use of antimetabolite agent | CPT/HCPCS: 99212 ==

== ENCOUNTER 2023-05-22 10:20 | Outpatient (REF) | payer MEDICARE, SELFPAY ==
[2023-05-22 14:09] LABS: MANUAL DIFF FLAG NO
[2023-05-22 14:27] LABS: Basophils Percent Auto 0.3 % (0-2); Eosinophils Absolute Auto 0.2 X10*3/uL (0.0-0.4); Eosinophils Percent Auto 3.5 % (0-4); Hematocrit 41.3 % (37.0-47.0); Hemoglobin 13.2 g/dl (12.0-16.0); Imm Gran Abs Auto 0.02 X10*3/uL (0.00-0.03); Imm Gran Pct Auto 0.3 % (0.0-0.4); Lymphocytes Absolute Auto 1.4 X10*3/uL (1.2-4.9); Lymphocytes Percent Auto 22.6 % (20-40); Mean Corpuscular Hemoglobin 26.9 pg (27.0-33.0); Mean Corpuscular Volume 84.3 fL (80.0-98.0); Mean Platelet Volume 10.3 fL (9.4-12.3); Monocytes Absolute Auto 0.4 X10*3/uL (0.1-1.2); Monocytes Percent Auto 7.3 % (2-11); Platelet Count 314 X10*3/uL (160-400); Red Cell Distribution Width 13.3 % (11.0-16.0)
[2023-05-22 14:47] LABS: Alanine Aminotransferase 30 U/L (0-31); Aspartate Amino Transferase 22 U/L (5-31); C Reactive Protein 0.81 mg/dL (< or = 0.50); Estimated Glomerular Filt Rate > 60
[2023-05-22 15:06] LABS: Erythrocyte Sedimentation Rate 31 MM/HR (0-20)
== END 2023-05-22 10:21 | disposition home or self-care (01) ==
LOC: HO.WFDLDS 10:20
PROVIDERS: Visit Provider Nurse Practitioner Family
DX: M05.9 Rheumatoid arthritis with rheumatoid factor, unspecified (principal)
CPT/HCPCS: 36415; 82565; 84450; 84460; 85025; 85652; 86140

== ENCOUNTER 2023-05-27 10:29 | Outpatient (AMB) | payer MEDICARE, SELFPAY ==
[2023-05-27 10:42] VITALS: BP 138/76; PULSE 64; TEMP 36.5; O2SAT 97; BMI 35.2
--- NOTE | 2023-05-27 10:42 | MHC.OFFVIS ---
Intake Vital Signs 05/27/23 10:42 Height 5 ft 4 in Weight 205 lb 4.006 oz BMI 35.2 BP 138/76 Blood Pressure Location Rt brachial Position Sitting Pulse 64 Pulse Source Pulse Oximeter Temp 97.7 F Temp Source Tympanic Pulse Oximetry (%) 97 Oxygen Delivery Method Room Air Intake Visit Reasons: rheumatoid arthritis Coffee Grinder Required: Yes Coffee Grinder Name: Danielle [id number] sign language Allergies No Known Allergies Allergy (Verified 05/27/23 10:48) Medication List - Last Reconciled 05/27/23 by Tiago Redman MD albuterol sulfate 90 mcg/actuation 2 puffs inhalation Q6H PRN cyclobenzaprine 10 mg PO BEDTIME folic acid 1 mg PO DAILY naproxen 500 mg PO BID PRN HPI HPI Comments History of Present Illness Details This is a 52-year-old female with seropositive RA (++RF -ve CCP) who returns for follow-up. Methotrexate has been discontinued due to transaminitis. Patient doing well overall. Her only complaint is intermittent low back pain that is worse with activity. She takes naproxen about once weekly with resolution of her pain. She denies any pain swelling or stiffness of her hands, wrists, fingers, toes, ankles. [facility] Medical History Seropositive rheumatoid arthritis Surgical History History of Family History Father Bone cancer Social History Alcohol intake: never Patient Tobacco Use Status: Never used Tobacco e-Cigarette/Vaping Use: Never Used Review of Systems [facility] [place] back pain Physical Exam Vital Signs: Last Vital Signs Temp 97.7 F 05/27/23 10:42 Pulse 64 05/27/23 10:42 BP 138/76 05/27/23 10:42 Pulse Ox 97 05/27/23 10:42 Oxygen Delivery Method Room Air 05/27/23 10:42 BMI result Body Mass Index 35.2 Const General: cooperative, healthy appearing and comfortable Nutritional Appearance: obese Limitations: no limitations HEENT Head: Yes normocephalic and Yes atraumatic Mouth: moist mucous membranes Resp Effort & Inspection: normal respiratory effort Auscultation: clear to auscultation bilaterally Cardio Rate: regular rate Rhythm: regular rhythm GI Inspection: No distended Palpation (GI): Soft to palpation and nontender Extrem Other: No active synovitis Normal range of motion of wrists, hands, fingers, elbows, shoulders, ankles, feet Assessment & Plan Assessment & Plan (1) Seropositive rheumatoid arthritis: Comment: ++RF -ve CCP dx around 2017 MTX started 2017 Code(s): M05.9 - Rheumatoid arthritis with rheumatoid factor, unspecified Plan: Seropositive rheumatoid arthritis (RF+ CCP-). Methotrexate held on 12/14/22 for slight increase in ALT, repeat labs on 12/26/22 normal- methotrexate was restarted, repeat labs on 01/17/23 slight increase in ALT, methotrexate has been on hold since 01/17/23.? Patient doing very well from RA standpoint no pain or stiffness. No synovitis on exam. Will continue to monitor off methotrexate. (2) Lumbar spondylosis: Code(s): M47.816 - Spondylosis without myelopathy or radiculopathy, lumbar region Plan: Back pain rather mechanical in nature. Patient uses naproxen about once a week. Can continue to use naproxen once weekly as needed Orders: Orders Comprehensive Met. Panel 4 Months M05.9 - Rheumatoid arthritis with rheumatoid factor, unspecified C Reactive Protein 4 Months M05.9 - Rheumatoid arthritis with rheumatoid factor, unspecified Complete Blood Count Auto Diff 4 Months M05.9 - Rheumatoid arthritis with rheumatoid factor, unspecified Erythrocyte Sedimentation Rate 4 Months M05.9 - Rheumatoid arthritis with rheumatoid factor, unspecified Coding Level of Care Code Est Pt Level 3 (09738) Diagnoses Seropositive rheumatoid arthritis M05.9 Lumbar spondylosis M47.816
== END 2023-05-27 11:06 | disposition home or self-care (01) ==
PROVIDERS: PCP Internal Medicine; Visit Provider Student in an Organized Health Care Education/Training Program
DX: M05.70 Rheumatoid arthritis with rheumatoid factor of unspecified site without organ or systems involvement (principal); M47.816 Spondylosis without myelopathy or radiculopathy, lumbar region
CPT/HCPCS: 99213

== ENCOUNTER → 2023-05-27 10:29 | Outpatient (BNVA) | payer MEDICARE, SELFPAY | PROVIDERS: PCP Internal Medicine; Visit Provider Student in an Organized Health Care Education/Training Program | DX: M05.9 Rheumatoid arthritis with rheumatoid factor, unspecified (principal); M47.816 Spondylosis without myelopathy or radiculopathy, lumbar region; R74.01 Elevation of levels of liver transaminase levels | CPT/HCPCS: 99212 ==

== ENCOUNTER 2023-10-24 13:01 | Outpatient (REF) | payer MEDICARE, SELFPAY ==
[2023-10-24 14:51] LABS: MANUAL DIFF FLAG NO
[2023-10-24 15:00] LABS: Basophils Percent Auto 0.2 % (0-2); Eosinophils Absolute Auto 0.3 X10*3/uL (0.0-0.4); Eosinophils Percent Auto 3.2 % (0-4); Hematocrit 39.3 % (37.0-47.0); Hemoglobin 12.8 g/dl (12.0-16.0); Imm Gran Abs Auto 0.01 X10*3/uL (0.00-0.03); Imm Gran Pct Auto 0.1 % (0.0-0.4); Lymphocytes Absolute Auto 1.9 X10*3/uL (1.2-4.9); Lymphocytes Percent Auto 23.5 % (20-40); Mean Corpuscular HGB Conc 32.6 g/dl (31.0-35.0); Mean Corpuscular Hemoglobin 26.7 pg (27.0-33.0); Mean Corpuscular Volume 81.9 fL (80.0-98.0); Mean Platelet Volume 9.7 fL (9.4-12.3); Monocytes Absolute Auto 0.7 X10*3/uL (0.1-1.2); Monocytes Percent Auto 8.1 % (2-11); Neutrophils Absolute Auto 5.3 x10*3/uL (2.0-8.3); Neutrophils Percent Auto 64.9 % (45-73); Platelet Count 311 X10*3/uL (160-400); Red Cell Distribution Width 13.7 % (11.0-16.0); White Blood Count 8.1 X10*3/uL (4.8-10.8)
[2023-10-24 15:12] LABS: Alanine Aminotransferase 25 U/L (0-31); Alkaline Phosphatase 74 U/L (39-117); Anion Gap 9 (12-20); Aspartate Amino Transferase 18 U/L (5-31); Bilirubin Total 0.6 mg/dL (0.0-1.0); Blood Urea Nitrogen 14 mg/dL (9-16); C Reactive Protein 0.57 mg/dL (< or = 0.50); Calcium 9.2 mg/dL (8.4-10.2); Carbon Dioxide 29 mmol/L (22-29); Chloride 105 mmol/L (96-108); Estimated Glomerular Filt Rate > 60; Glucose Random 84 mg/dL (60-115); Potassium 3.5 mmol/L (3.3-5.1); Sodium 139 mmol/L (135-145); Total Protein 7.4 g/dL (6.5-8.0)
[2023-10-24 15:54] LABS: Erythrocyte Sedimentation Rate 32 MM/HR (0-20)
== END 2023-10-24 13:02 | disposition home or self-care (01) ==
LOC: HO.WFDLDS 13:01
PROVIDERS: Visit Provider Student in an Organized Health Care Education/Training Program
DX: M05.9 Rheumatoid arthritis with rheumatoid factor, unspecified (principal)
CPT/HCPCS: 36415; 80053; 85025; 85652; 86140

== ENCOUNTER 2023-10-30 08:22 | Outpatient (AMB) | payer MEDICARE, SELFPAY ==
--- NOTE | 2023-10-30 08:25 | MHC.OFFVIS ---
Intake Vital Signs 10/30/23 08:35 Height 5 ft 4 in Weight 202 lb 9.677 oz BMI 34.8 BP 124/70 Blood Pressure Location Lt brachial Position Sitting Pulse 69 Pulse Source Pulse Oximeter Temp 97.3 F Temp Source Skin Pulse Oximetry (%) 96 Oxygen Delivery Method Room Air Intake Visit Reasons: Rheumatoid Arthritis Intake Note: Pt last seen 05/27/23, presents today for follow up and test results. Lining Machine Operator Required: Yes Lining Machine Operator Language: Immigration Case Manager Name: Sabiha [email or web address] sign langauge Information Interpreted: clinical only Accompanied by: Self / Same As Patient Allergies No Known Allergies Allergy (Verified 10/30/23 08:25) Medication List - Last Reconciled 10/30/23 by Tiago Redman MD albuterol sulfate 90 mcg/actuation 2 puffs inhalation Q6H PRN albuterol sulfate mg inhalation HPI HPI Comments History of Present Illness Details This is a 53-year-old female with seropositive RA (++RF -ve CCP) who returns for follow-up. She is off DMARDs. Patient doing well overall. Her only complaint is intermittent low back pain that is worse with activity. . She denies any pain swelling or stiffness of her hands, wrists, fingers, toes, ankles. [facility] Medical History (Updated 10/30/23 @ 08:57 by Tiago Redman MD) Seropositive rheumatoid arthritis Surgical History History of Family History Father Bone cancer Social History (Updated 10/30/23 @ 08:37 by ALENA Sheldon) Alcohol intake: former Patient Tobacco Use Status: Never used Tobacco e-Cigarette/Vaping Use: Never Used Review of Systems [facility] [place] Reports back pain Physical Exam Vital Signs: Last Vital Signs Temp 97.3 F 10/30/23 08:35 Pulse 69 10/30/23 08:35 BP 124/70 10/30/23 08:35 Pulse Ox 96 10/30/23 08:35 Oxygen Delivery Method Room Air 10/30/23 08:35 BMI result Body Mass Index 34.8 Const General: cooperative, healthy appearing and comfortable Nutritional Appearance: obese Limitations: no limitations HEENT Head: Yes normocephalic and Yes atraumatic Mouth: moist mucous membranes Resp Effort & Inspection: normal respiratory effort Auscultation: clear to auscultation bilaterally Cardio Rate: regular rate Rhythm: regular rhythm GI Inspection: No distended Palpation (GI): Soft to palpation and nontender Extrem Other: No active synovitis Normal range of motion of wrists, hands, fingers, elbows, shoulders, ankles, feet Results Reviewed Results Reviewed: Laboratory Tests Ordering Physician: Janice Negron BEAUTY PARLOR CLEANER Date of Service: 11/22/22 Procedure(s): XR shoulder LT min 2V Accession Number(s): [id number] EXAMINATION: XR SHOULDER, LEFT CLINICAL INFORMATION: Pain.? COMPARISON: None? TECHNIQUE: AP external rotation, Grashey, scapular Y, and axillary views of the left shoulder. FINDINGS: Bony alignment and mineralization are normal. The glenohumeral joint is intact and shows moderate osteoarthritic change. The acromioclavicular and coracoclavicular intervals are normal. There is a small distal acromial osteophyte. There is calcific tendinitis of the left rotator cuff insertion. No fracture or dislocation is seen. This no foreign body. No left pneumothorax is seen.? XR/XR shoulder LT min 2V IMPRESSION: ? 1. There is moderate osteoarthritic change of the left glenohumeral joint. ? 2. There is calcific tendinitis of the left rotator cuff insertion. Ordering Physician: Janice Negron BEAUTY PARLOR CLEANER Date of Service: 11/22/22 Procedure(s): XR lumbar spine 2-3V Accession Number(s): [id number] EXAMINATION: XR LUMBOSACRAL SPINE CLINICAL INFORMATION: Lower back pain. COMPARISON: Radiographs dated 04/28/2020. TECHNIQUE: AP and lateral views of the lumbar spine and lateral view of the lumbosacral junction. FINDINGS: There is bony demineralization. Vertebral body heights and alignment are normal. The disc spaces are well-maintained. No acute fracture or spondylolisthesis is seen. There is multi-level lower thoracic and lumbar spondylosis. There is facet arthropathy, most pronounced at L5-S1. There are aortic atherosclerotic calcifications. XR/XR lumbar spine 2-3V IMPRESSION: ? 1. No acute fracture or spondylolisthesis is seen. ? 2. The lumbar disc spaces are well-maintained. ? 3. There is multi-level lower thoracic and lumbar spondylosis. ? 4. There is facet arthropathy, most pronounced at L5-S1. Assessment & Plan Assessment & Plan (1) Seropositive rheumatoid arthritis: Comment: ++RF -ve CCP dx around 2017 MTX started 2018 DC 01/2023 Code(s): M05.9 - Rheumatoid arthritis with rheumatoid factor, unspecified Plan: Seropositive rheumatoid arthritis (RF+ CCP-). Methotrexate held on 12/14/22 for slight increase in ALT, repeat labs on 12/26/22 normal- methotrexate was restarted, repeat labs on 01/17/23 slight increase in ALT, methotrexate has been on hold since 01/17/23.? Patient doing very well from RA standpoint no pain or stiffness. No synovitis on exam. Will continue to monitor off methotrexate. Labs before next visit in 6 months (2) Lumbar spondylosis: Code(s): M47.816 - Spondylosis without myelopathy or radiculopathy, lumbar region Plan: Back pain rather mechanical in nature. Only mildly symptomatic. Does not require any specific treatment Plan I spent 26 minutes reviewing patient's chart, evaluating patient, ordering diagnostic workup, counseling patient and documenting in the chart Orders: Orders Complete Blood Count Auto Diff 6 Months M05.9 - Rheumatoid arthritis with rheumatoid factor, unspecified Comprehensive Met. Panel 6 Months M05.9 - Rheumatoid arthritis with rheumatoid factor, unspecified C Reactive Protein 6 Months M05.9 - Rheumatoid arthritis with rheumatoid factor, unspecified Erythrocyte Sedimentation Rate 6 Months M05.9 - Rheumatoid arthritis with rheumatoid factor, unspecified Coding Level of Care Code Est Pt Level 4 (51381) Diagnoses Seropositive rheumatoid arthritis M05.9 Lumbar spondylosis M47.816
[2023-10-30 08:35] VITALS: BP 124/70; PULSE 69; TEMP 36.3; O2SAT 96; BMI 34.8
== END 2023-10-30 08:50 | disposition home or self-care (01) ==
PROVIDERS: PCP Internal Medicine; Visit Provider Student in an Organized Health Care Education/Training Program
DX: M05.79 Rheumatoid arthritis with rheumatoid factor of multiple sites without organ or systems involvement (principal); M47.816 Spondylosis without myelopathy or radiculopathy, lumbar region; L40.50 Arthropathic psoriasis, unspecified
CPT/HCPCS: 99214

== ENCOUNTER → 2023-10-30 08:22 | Outpatient (BNVA) | payer MEDICARE, SELFPAY | PROVIDERS: PCP Internal Medicine; Visit Provider Student in an Organized Health Care Education/Training Program | DX: M05.9 Rheumatoid arthritis with rheumatoid factor, unspecified (principal); M47.816 Spondylosis without myelopathy or radiculopathy, lumbar region | CPT/HCPCS: 99212 ==

== ENCOUNTER 2024-04-27 09:43 | Outpatient (REF) | payer MEDICARE, SELFPAY ==
[2024-04-27 11:29] LABS: MANUAL DIFF FLAG NO
[2024-04-27 12:02] LABS: Basophils Percent Auto 0.5 % (0-2); Eosinophils Absolute Auto 0.3 X10*3/uL (0.0-0.4); Eosinophils Percent Auto 7.2 % (0-4); Hematocrit 41.9 % (37.0-47.0); Hemoglobin 13.6 g/dl (12.0-16.0); Imm Gran Abs Auto 0.01 X10*3/uL (0.00-0.03); Imm Gran Pct Auto 0.2 % (0.0-0.4); Lymphocytes Absolute Auto 1.2 X10*3/uL (1.2-4.9); Mean Corpuscular HGB Conc 32.5 g/dl (31.0-35.0); Mean Corpuscular Volume 83.3 fL (80.0-98.0); Mean Platelet Volume 10.4 fL (9.4-12.3); Monocytes Absolute Auto 0.4 X10*3/uL (0.1-1.2); Monocytes Percent Auto 9.5 % (2-11); Neutrophils Absolute Auto 2.4 x10*3/uL (2.0-8.3); Neutrophils Percent Auto 54.6 % (45-73); Platelet Count 263 X10*3/uL (160-400); Red Blood Count 5.03 X10*6/uL (4.20-5.50); Red Cell Distribution Width 13.8 % (11.0-16.0); White Blood Count 4.4 X10*3/uL (4.8-10.8)
[2024-04-27 12:34] LABS: Alanine Aminotransferase 29 U/L (0-31); Alkaline Phosphatase 80 U/L (39-117); Anion Gap 11 (12-20); Aspartate Amino Transferase 24 U/L (5-31); Bilirubin Total 0.7 mg/dL (0.0-1.0); Blood Urea Nitrogen 10 mg/dL (9-16); C Reactive Protein 0.47 mg/dL (< or = 0.50); Calcium 9.4 mg/dL (8.4-10.2); Carbon Dioxide 29 mmol/L (22-29); Chloride 106 mmol/L (96-108); Estimated Glomerular Filt Rate > 60; Glucose Random 97 mg/dL (60-115); Potassium 3.9 mmol/L (3.3-5.1); Sodium 142 mmol/L (135-145); Total Protein 7.5 g/dL (6.5-8.0)
[2024-04-27 12:38] LABS: Erythrocyte Sedimentation Rate 20 MM/HR (0-20)
== END 2024-04-27 09:44 | disposition home or self-care (01) ==
LOC: HO.WFDLDS 09:43
PROVIDERS: Visit Provider Student in an Organized Health Care Education/Training Program
DX: R05.9 Cough, unspecified (principal)
CPT/HCPCS: 36415; 80053; 85025; 85652; 86140

== ENCOUNTER 2024-04-29 10:43 | Outpatient (AMB) | payer MEDICARE, SELFPAY ==
--- NOTE | 2024-04-29 10:49 | A.OFFVIS_ITS ---
Vital Signs 04/29/24 11:07 Height 5 ft 4 in Weight 182 lb 1.629 oz BMI 31.3 BP 142/80 H Blood Pressure Location Lt brachial Position Sitting Pulse 66 Pulse Source Pulse Oximeter Pulse Oximetry (%) 98 Oxygen Delivery Method Room Air Intake Visit Reasons: RA/CM Quantitative Equity Head Name: Shelley Warren Allergies No Known Allergies Allergy (Verified 04/29/24 11:12) Medication List - Last Reconciled 04/29/24 by Tiago Redman MD albuterol sulfate 90 mcg/actuation 2 puffs inhalation Q6H PRN albuterol sulfate mg inhalation HPI Comments Details: This is a 53-year-old female with seropositive RA (++RF -ve CCP) who returns for follow-up. She is off DMARDs. States that she is doing great. Has any joint pain swelling or stiffness. She has been working out. [facility] Medical History Seropositive rheumatoid arthritis Surgical History History of Family History Father Bone cancer Social History Alcohol intake: former Patient Tobacco Use Status: Never used Tobacco e-Cigarette/Vaping Use: Never Used Review of Systems Musc Denies arthralgias, Denies joint swelling and Denies stiffness Physical Exam Vital Signs: Last Vital Signs Pulse 66 04/29/24 11:07 BP 142/80 H 04/29/24 11:07 Pulse Ox 98 04/29/24 11:07 Oxygen Delivery Method Room Air 04/29/24 11:07 BMI result Body Mass Index 31.3 Const General: cooperative, healthy appearing and comfortable Nutritional Appearance: obese Limitations: no limitations HEENT Head: Yes normocephalic and Yes atraumatic Mouth: moist mucous membranes Resp Effort & Inspection: normal respiratory effort Auscultation: clear to auscultation bilaterally Cardio Rate: regular rate Rhythm: regular rhythm GI Inspection: No distended Palpation (GI): Soft to palpation and nontender Extrem Other: Normal gait No active synovitis Normal range of motion of wrists, hands, fingers, elbows, shoulders, ankles, feet Results Reviewed Results Reviewed: Laboratory Tests Ordering Physician: Janice Negron DEPALLETIZER OPERATOR Date of Service: 11/22/22 Procedure(s): XR shoulder LT min 2V Accession Number(s): [id number] EXAMINATION: XR SHOULDER, LEFT CLINICAL INFORMATION: Pain.? COMPARISON: None? TECHNIQUE: AP external rotation, Grashey, scapular Y, and axillary views of the left shoulder. FINDINGS: Bony alignment and mineralization are normal. The glenohumeral joint is intact and shows moderate osteoarthritic change. The acromioclavicular and coracoclavicular intervals are normal. There is a small distal acromial osteophyte. There is calcific tendinitis of the left rotator cuff insertion. No fracture or dislocation is seen. This no foreign body. No left pneumothorax is seen.? XR/XR shoulder LT min 2V IMPRESSION: ? 1. There is moderate osteoarthritic change of the left glenohumeral joint. ? 2. There is calcific tendinitis of the left rotator cuff insertion. Ordering Physician: Janice Negron DEPALLETIZER OPERATOR Date of Service: 11/22/22 Procedure(s): XR lumbar spine 2-3V Accession Number(s): [id number] EXAMINATION: XR LUMBOSACRAL SPINE CLINICAL INFORMATION: Lower back pain. COMPARISON: Radiographs dated 04/28/2020. TECHNIQUE: AP and lateral views of the lumbar spine and lateral view of the lumbosacral junction. FINDINGS: There is bony demineralization. Vertebral body heights and alignment are normal. The disc spaces are well-maintained. No acute fracture or spondylolisthesis is seen. There is multi-level lower thoracic and lumbar spondylosis. There is facet arthropathy, most pronounced at L5-S1. There are aortic atherosclerotic calcifications. XR/XR lumbar spine 2-3V IMPRESSION: ? 1. No acute fracture or spondylolisthesis is seen. ? 2. The lumbar disc spaces are well-maintained. ? 3. There is multi-level lower thoracic and lumbar spondylosis. ? 4. There is facet arthropathy, most pronounced at L5-S1. Assessment & Plan Assessment & Plan (1) Seropositive rheumatoid arthritis: Comment: ++RF -ve CCP dx around 2017 MTX started 2017 DC 01/2023 d.t transaminitis Code(s): M05.9 - Rheumatoid arthritis with rheumatoid factor, unspecified Category: Medical Plan: Seropositive rheumatoid arthritis. She is off DMARDs? Patient doing very well from RA standpoint no pain or stiffness. No synovitis on exam. Inflammatory markers normal Will continue to monitor off methotrexate. Labs before next visit in 12 months Plan I spent 16 minutes reviewing patient's chart, evaluating patient, ordering diagnostic workup, counseling patient and documenting in the chart Orders: Orders C Reactive Protein 1 Year M05.9 - Rheumatoid arthritis with rheumatoid factor, unspecified Erythrocyte Sedimentation Rate 1 Year M05.9 - Rheumatoid arthritis with rheumatoid factor, unspecified Complete Blood Count Auto Diff 1 Year M05.9 - Rheumatoid arthritis with rheumatoid factor, unspecified Comprehensive Met. Panel 1 Year M05.9 - Rheumatoid arthritis with rheumatoid factor, unspecified Coding Level of Care Code Est Pt Level 3 (87979) Diagnoses Seropositive rheumatoid arthritis M05.9
[2024-04-29 11:07] VITALS: BP 142/80; PULSE 66; O2SAT 98; BMI 31.3
== END 2024-04-29 11:39 | disposition home or self-care (01) ==
LOC: HO.RHE 10:43
PROVIDERS: PCP Internal Medicine; Visit Provider Student in an Organized Health Care Education/Training Program
DX: M05.79 Rheumatoid arthritis with rheumatoid factor of multiple sites without organ or systems involvement (principal)
CPT/HCPCS: 99213

== ENCOUNTER → 2024-04-29 10:43 | Outpatient (BNVA) | payer MEDICARE, SELFPAY | PROVIDERS: PCP Internal Medicine; Visit Provider Student in an Organized Health Care Education/Training Program | DX: M05.9 Rheumatoid arthritis with rheumatoid factor, unspecified (principal) | CPT/HCPCS: 99212 ==

== ENCOUNTER 2025-07-14 10:03 | Outpatient (REF) | payer MEDICARE, SELFPAY ==
--- NOTE | ~2025-07-14 | XR_ITS ---
Exam: XR HAND 2 VIEWS BILATERAL, bilateral hand x-rays TECHNIQUE: AP, lateral, and ball-catcher views upper extremity, bilateral hands INDICATION: Arthritis COMPARISON: August 23, 2022 FINDINGS: RIGHT HAND: Small marginal osteophyte are noted at the DIP joint of the second digit. Marginal osteophytes are noted at the IP and MCP joint of thumb and the second and fifth MCP joints of the hand. Joint spaces are relatively preserved. Chondrocalcinosis is first CMC and MCP joint, as well as the second, third, fourth, and fifth MCP joints. LEFT HAND: Small marginal ossified is are evident involving the second and fifth DIP joints, IP joint of thumb, the first CMC joint. Joint spaces are relatively preserved. Pyrophosphate deposition is visible in the soft tissues at the base of the third proximal phalanx and there is faint chondrocalcinosis in the second and fifth MCP joints, first CMC joint, and triangular fiber cartilage. XR/XR Hand Chad 2V IMPRESSION: Right hand: Mild secondary osteoarthritis with a pattern consistent with CPPD arthropathy. Increased from the prior. Left hand: Mild secondary osteoarthritis with a pattern consistent with CPPD arthropathy. Increased from the prior. Electronically signed by: Avtar Nettles MD 07/14/2025 01:31 PM EDT
--- NOTE | ~2025-07-14 | XR_ITS ---
EXAMINATION: XR KNEE, LEFT CLINICAL INFORMATION: M17.12 - Unilateral primary osteoarthritis, left knee COMPARISON: April 18, 2021 TECHNIQUE: AP and lateral views of the left knee. FINDINGS: There is mild narrowing of the medial joint space. There are minute marginal osteophytes in the 3 joint compartments. There is no joint effusion. There is a quadriceps and patellar enthesophytes and a large tibial tuberosity enthesophyte. XR/XR knee LT 2V IMPRESSION: Mild changes of osteoarthritis. Electronically signed by: Avtar Nettles MD 07/14/2025 01:22 PM EDT
--- NOTE | ~2025-07-14 | XR_ITS ---
Exam: XR FOOT 3 OR MORE VIEWS BILATERAL TECHNIQUE: Three views lower extremity joint, bilateral feet INDICATION: M17.12 - Unilateral primary osteoarthritis, left knee COMPARISON: Left foot 08/01/2021 FINDINGS: RIGHT FOOT: There is hallux valgus deformity. There are moderate marginal and nonmarginal osteophyte involving the first MTP joint. There is soft tissue calcification lateral to the joint. There is subtle chondral calcinosis in the first-fourth MTP joints Small marginal osteophytes are present in the base of the second, third, and fourth tarsal phalanges. There is bony prominence with pseudoarticulation between the proximal diaphyses of the third and fourth metatarsals. There are large calcaneal plantar fascial enthesophytes on calcaneus. There are marginal osteophytes involving the dorsal midfoot. LEFT FOOT: There is hallux valgus deformity. Small marginal osteophytes are present involving the base of the proximal phalanges and the first metatarsal head. On the AP view, there is linear and globular soft tissue calcification lateral to the lateral sesamoid of the first metatarsal. There is faint chondrocalcinosis is visible in the MTP joint. There is also soft tissue calcification lateral to the fifth metatarsal tuberosity. There is an elongated articulation between the base of the third and fourth metatarsals. Marginal osteophytes are present in the dorsal midfoot. There are moderately large enthesophytes on calcaneus at the Achilles tendon and plantar fascial attachments. XR/XR Foot Chad 3V IMPRESSION: Bilateral hallux valgus deformity. Mild osteoarthritis, likely secondary to CPPD arthropathy. Moderately large calcaneal spurs. Electronically signed by: Avtar Nettles MD 07/18/2025 12:13 PM EDT
[2025-07-14 12:58] LABS: Alanine Aminotransferase 28 U/L (0-31); Aspartate Amino Transferase 24 U/L (5-31); Estimated Glomerular Filt Rate > 60
== END 2025-07-14 10:04 | disposition home or self-care (01) ==
LOC: HO.HKASLDS 10:03
PROVIDERS: PCP Internal Medicine; Visit Provider Internal Medicine Rheumatology
DX: Z51.81 Encounter for therapeutic drug level monitoring (principal); M05.9 Rheumatoid arthritis with rheumatoid factor, unspecified; M17.12 Unilateral primary osteoarthritis, left knee; Z79.899 Other long term (current) drug therapy
CPT/HCPCS: 36415; 73120; 73560; 73630; 82565; 84450; 84460; 85652; 86140; 86200; 86431; 99212

== ENCOUNTER 2025-07-14 10:03 | Outpatient (AMB) | payer MEDICARE, SELFPAY ==
--- OUTSIDE RECORDS SUMMARY | 2025-07-09 23:59 | XMS_ITS | Continuity of Care Document ---
Author Organization [facility] Address [address] [place] [address]- Care Team Providers Care Cashier Office Name Role Phone Carlos MARTINEZ, Madina Kendrick Primary Care Physician [place] [facility] [place] [facility] [address], [place] [address] Encounter Type: Triage Allergies, Adverse Reactions, Alerts No Known Medication Allergies Immunizations Given and Recorded Vaccine Date Status Refusal Reason influenza virus vaccine, inactivated 10/15/23 Give n influenza virus vaccine, inactivated 06/30/20 Vinny rded influenza virus vaccine, inactivated 09/23/18 Vinny rded influenza virus vaccine, inactivated 01/07/13 Vinny rded SARS-CoV-2 (COVID-19) mRNA BNT-162b2 vac 05/11/21 Recorded SARS-CoV-2 (COVID-19) mRNA BNT-162b2 vac 04/20/21 Recorded tetanus/diphtheria/pertussis, acel(Tdap) 01/07/13 Recorded tetanus-diphtheria toxoids (Td) 04/08/06 Recorded Medications Albuterol (Eqv-ProAir HFA) 90 mcg/inh inhalation aerosol 2 puffs, Inhalation, Every 6 hours, PRN NEEDED FOR WHEEZING/SHORTNESS OF BREATH, # 8.5 each, 5 Refills, Maintenance, 01/29/24 12:27:00 PM EDT, [id number], 30, INHALE 2 PUFFS EVERY 6 HOURS NEEDED FOR WHEEZING/SHORTNESS OF BREATH, 160, cm, 10/15/23 13:19:00 EST, Height, 91.9, kg, 10/02/23 0:46:00 EST, Dry Weight Start Date: 01/29/24 Status: Ordered Medication Dispense Status: Completed Quantity: 8.5 Unit: each Total Allowed Fills: 1 Fills Dispensed: 0 lidocaine 5% topical film 1 patch, Topically, Daily, remove patches after 12 hours, # 30 patch, 2 Refills, Acute 10/02/25 11:07:00 AM EST, 10/01/24 11:06:00 AM EST, Film, [id number], Partial fill upon patient request if the prescription is for a schedule II opioid drug., 1 patch Topically Daily,Instr:remove patches after 12 hours, 160, cm, 10/01/24 10:57:00 EST, Height, 91.9, kg, 10/02/23 0:46:00 EST, Dry Weight Start Date: 10/01/24 Stop Date: 10/02/25 Status: Ordered Medication Dispense Status: Completed Quantity: 30.0 Unit: patch Total Allowed Fills: 3 Fills Dispensed: 0 Nebulizer and accessories Nebulizer and accessories, See Instructions, # 1 each, Refills 0, Tot. Refills 0, Maintenance, Dx:Asthma, 10/15/23 1:44:00 PM EST, Supply, 160, cm, 10/15/23 13:19:00 EST, Height, 91.9, kg, 10/02/23 0:46:00 EST, Dry Weight Start Date: 10/15/23 Status: Ordered Medication Dispense Status: Completed Quantity: 1.0 Unit: each Total Allowed Fills: 1 Fills Dispensed: 0 Vitamin D3 By Mouth, Daily, 0 Refills, Maintenance, 10/29/20 9:51:00 AM EST, Partial fill upon patient requestif the prescription is for a schedule II opioid drug. Start Date: 10/29/20 Status: Ordered Medication Dispense Status: Completed Total Allowed Fills: 1 Fills Dispensed: 0 Problem List Condition Confirmation Course Effective Dates Status H ealth Status Informant Elevated ALT measurement Confirmed Active Asthma Confirmed Active Body mass index 30+ - obesity Confirmed Active Dyslipidemia Confirmed Active Gestational diabetes Confirmed Active Deafness Confirmed Active Obese class I Confirmed Active Osteoarthritis Confirmed Active Prediabetes Confirmed Active Rheumatoid arthritis Confirmed Active Social History Social History Type Response Smoking Status Never (less than 100 in lifetime) entered on: 03/02/19 Sex Sex Representation Female (finding) Patient Care team information Care Team Personnel Name: Madina Gonzalez NP Position: S PCO Associate Professional Member Role: PCP Address: [address] [place] [address] Telecom: Care Team Related Persons Name: EDDIE VAIL Name: ROBB VAIL Name: KATHI HADDAD Insurance Providers Guarantor name: GUSTAVO SALINASRON Health Plan Information #: 1 Payer: MEDICARE B Payer Identifier: NA Member Number: [id number] Group Number: NA Subscriber Identifier: NA Relationship to Subscriber: self Coverage Type: NA Coverage Verification Date: NA Telecom: NA Address: [facility] Plan Information #: 2 Payer: [employer] Payer Identifier: NA Member Number: [id number] Group Number: [id number] Subscriber Identifier: NA Relationship to Subscriber: Spouse Coverage Type: Managed Care (Private) Coverage Verification Date: NA Telecom: Address:
--- NOTE | 2025-07-14 10:06 | MHC.OFFVIS ---
Vital Signs 07/14/25 10:16 Height 5 ft 5 in Weight 190 lb 11.198 oz BMI 31.7 BP 140/90 H Blood Pressure Location Rt brachial Position Sitting Pulse 73 Pulse Source Pulse Oximeter Pulse Oximetry (%) 98 Oxygen Delivery Method Room Air Intake Visit Reasons: RA Intake Note: Patient presents today for an RA/CM follow up. Marketing Production Manager Name: [email or web address] [id number] Information Interpreted: non-clinical & clinical Accompanied by: Self / Same As Patient Allergies No Known Allergies Allergy (Verified 07/14/25 10:06) HPI HPI RA: Details: japanese interpreter used. Right knee is swollen for about a month. SHe has had intermittent pain limited function. She takes ibuprofen 400mg qhs or during the day with relief. She had knee pain and swelling for years. No pain in swelling in other joints. Denies morning stiffness. She has not bracing her knee. Back stiffness with prolonged sitting. She has received meloxicam recently for back pain management from [facility]. She has had relief with meloxicam. [facility] Medical History Seropositive rheumatoid arthritis Surgical History History of Family History (Updated 07/14/25 @ 10:19 by Lizzeth Murphy CMA) Father Bone cancer Social History Alcohol intake: former Patient Tobacco Use Status: Never used Tobacco e-Cigarette/Vaping Use: Never Used Physical Exam Vital Signs: Last Vital Signs Pulse 73 07/14/25 10:16 BP 140/90 H 07/14/25 10:16 Pulse Ox 98 07/14/25 10:16 Oxygen Delivery Method Room Air 07/14/25 10:16 BMI result Body Mass Index 31.7 Const Other: General: Comfortable CVS: RRR Respiratory: clear to auscultation bilaterally. Good respiratory effort Skin: No lesions seen MSK: No tenderness of any joints in the upper extremities. Tender to palpate left knee along the infrapatella region. No joint line tenderness of knees. No knee effusion. Normal range of motion of upper extremities. Left knee flexion 90 degrees, right knee flexion 100 degrees. No MTP tenderness. No synovitis. Assessment & Plan Assessment & Plan (1) Seropositive rheumatoid arthritis: Comment: In clinical remission off of DMARD therapy. Rheumatology history: +RF -CCP dx around 2018. 01/[address] [place]: Mild synovitis in bilateral MCP joints 2, 3, 4. MTX started 2017 DC 01/2023 d.t transaminitis Code(s): M05.9 - Rheumatoid arthritis with rheumatoid factor, unspecified Category: Medical Plan: Monitor clinically X-rays of bilateral hands and feet ordered to evaluate for progression of disease ? Radiographic evidence of inflammatory arthritis Return to clinic in 4 months or sooner if needed (2) Left knee pain: Comment: She has localized tenderness to the infrapatellar region. She has background of osteoarthritis of the left knee. We discussed conservative management. Code(s): M25.562 - Pain in left knee Category: Medical Plan: Left knee x-ray ordered PT ordered She will switch ibuprofen to meloxicam. Labs ordered for drug monitoring due to chronic NSAID use. She will call office when she runs out of meloxicam for refill until follow-up visit She will try compression sleeve Return to clinic in 4 months (3) Osteoarthritis of left knee: Code(s): M17.12 - Unilateral primary osteoarthritis, left knee Category: Medical Qualifiers: Osteoarthritis type: primary Qualified Code(s): M17.12 - Unilateral primary osteoarthritis, left knee Plan: See above Orders: Orders Creatinine Today M05.9 - Rheumatoid arthritis with rheumatoid factor, unspecified, M25.562 - Pain in left knee Aspartate Amino Transferase Today M05.9 - Rheumatoid arthritis with rheumatoid factor, unspecified, M25.562 - Pain in left knee PT Evaluation and Treatment Today M25.562 - Pain in left knee XR Hand Chad 2V Today M05.9 - Rheumatoid arthritis with rheumatoid factor, unspecified, M17.12 - Unilateral primary osteoarthritis, left knee C Reactive Protein Today M05.9 - Rheumatoid arthritis with rheumatoid factor, unspecified, M25.562 - Pain in left knee, Z79.899 - Other terminal make up operator (current) drug therapy Erythrocyte Sedimentation Rate Today M05.9 - Rheumatoid arthritis with rheumatoid factor, unspecified, M25.562 - Pain in left knee, Z79.899 - Other senior living (current) drug therapy Rheumatoid Factor Today M05.9 - Rheumatoid arthritis with rheumatoid factor, unspecified, M25.562 - Pain in left knee Cyclic Citrullinated Peptide Today M05.9 - Rheumatoid arthritis with rheumatoid factor, unspecified, M25.562 - Pain in left knee Alanine Aminotransferase Today M05.9 - Rheumatoid arthritis with rheumatoid factor, unspecified, M25.562 - Pain in left knee XR knee LT 2V Today M05.9 - Rheumatoid arthritis with rheumatoid factor, unspecified, M17.12 - Unilateral primary osteoarthritis, left knee XR Foot Chad 3V Today M05.9 - Rheumatoid arthritis with rheumatoid factor, unspecified, M17.12 - Unilateral primary osteoarthritis, left knee Coding Level of Care Code Est Pt Level 4 (69958) Complex EM visit Add On G2211 Diagnoses Seropositive rheumatoid arthritis M05.9 Left knee pain M25.562 Primary osteoarthritis of left knee M17.12 Osteoarthritis type: primary
[2025-07-14 10:16] VITALS: BP 140/90; PULSE 73; O2SAT 98; BMI 31.7
== END 2025-07-14 10:53 | disposition home or self-care (01) ==
LOC: HO.RHES 10:03
PROVIDERS: PCP Internal Medicine; Visit Provider Internal Medicine Rheumatology
DX: M05.9 Rheumatoid arthritis with rheumatoid factor, unspecified (principal); M25.562 Pain in left knee; M17.12 Unilateral primary osteoarthritis, left knee
CPT/HCPCS: 99214; G2211

== ENCOUNTER → 2025-07-14 12:25 | Outpatient (BNV) | payer MEDICARE, SELFPAY | PROVIDERS: PCP Internal Medicine; Visit Provider Radiology Diagnostic Radiology | DX: M20.11 Hallux valgus (acquired), right foot (principal); M77.32 Calcaneal spur, left foot | CPT/HCPCS: 73120; 73560; 73630 ==